=== PATIENT | female | born 1955 | race African-American/Black ===

== ENCOUNTER 2019-12-16 14:30 | Emergency (ER) | payer MEDICARE | END 2019-12-16 16:11 | disposition home or self-care (01) | LOC: EDH 14:30 | DX: S92.415A Nondisplaced fracture of proximal phalanx of left great toe, initial encounter for closed fracture (principal); E11.9 Type 2 diabetes mellitus without complications; I10 Essential (primary) hypertension; E78.00 Pure hypercholesterolemia, unspecified; W18.49XA Other slipping, tripping and stumbling without falling, initial encounter; Y93.89 Activity, other specified; Y92.098 Other place in other non-institutional residence as the place of occurrence of the external cause; Y99.8 Other external cause status | CPT/HCPCS: 73630 ==

== ENCOUNTER → 2024-05-23 | Outpatient (CLI) | payer OTHER, MEDICARE ==
[2024-05-23 08:37] LABS: CREATININE 0.8 mg/dL (0.5-1.0)
== END | disposition home or self-care (01) ==
LOC: LAB 07:33
PROVIDERS: ATTEND Surgery
DX: C41.9 Malignant neoplasm of bone and articular cartilage, unspecified (principal)
CPT/HCPCS: 36415; 82565; 84520

== ENCOUNTER → 2024-05-29 | Outpatient (CLI) | payer OTHER, MEDICARE ==
[~2024-05-29] MED LIST: GADOTERATE MEGLUMINE 10 MMOL/20 ML VIAL IV ONE
== END | disposition home or self-care (01) ==
LOC: RAH 13:48
PROVIDERS: ATTEND Surgery
DX: C41.9 Malignant neoplasm of bone and articular cartilage, unspecified (principal); M19.011 Primary osteoarthritis, right shoulder; M25.711 Osteophyte, right shoulder; M25.811 Other specified joint disorders, right shoulder
CPT/HCPCS: 73223; A9575

== ENCOUNTER 2024-07-03 18:39 | Emergency (ER) | payer OTHER, MEDICARE ==
[~2024-07-03] VITALS: Ht 162.6 cm; Wt 68.9 kg
[2024-07-03 18:41] VITALS: TEMP 98.4
--- NOTE | 2024-07-03 19:05 | ERN ---
ED Note History of Present Illness Stated Complaint: FALL Chief Complaint: Mechanical Fall Time Seen by MD: 18:42 Time Seen by Midlevel: 18:42 Dictation: The patient is a 69-year-old female with a history of a neck cancer, diabetes who presents to the emergency department with complaints of bilateral ankle pain after a trip and fall on her porch onset 6:00 p.m.. Patient reports she landed on her buttocks. Denies any head trauma, LOC, use of blood thinners. Patient denies any other injuries. Denies any neck pain, shoulder pain, extremity pain, hip pain, chest pain, abdominal pain. Allergies: Coded Allergies: No Known Drug Allergies (Unverified Allergy, Unknown, 08/09/17) Past Medical History Past Medical History: Cancer, Diabetes-Type II, Hypertension Surgical History: Unknown RN Note Reviewed/Agreed w/PFSH: Yes Review of System Dictation Constitutional: Negative for fever,chills, and weight loss Eyes: Negative for injury, pain,redness, and discharge ENT: Negative for injury,pain or swelling Cardiovascular: Negative for chest pain, palpitations, and edema Respiratory: Negative for shortness of breath, cough, and wheezing, Abdomen/GI: Negative for abdominal pain, nausea, vomiting, diarrhea, and constipation Back: Negative for injury and pain : Negative for injury, bleeding and discharge MS/Extremity: Negative for injury and deformity positive for bilateral ankle pa in Skin: Negative for rash, and discoloration Neuro: Negative for headache, weakness, numbness, tingling, and seizure Psych: Negative for suicide ideation, homicidal ideation, and hallucinations Initial Vital Sign VS Vital Signs Date Time Temp Pulse Resp B/P (MAP) Pulse Ox O2 Delivery O2 Flow Rate FiO2 07/03/24 18:41 98.4 74 16 118/76 95 Room Air 0 07/03/24 19:47 21 Physical Exam Dictation Vital Signs reviewed General Appearance: Alert, oriented x 3, no acute distress, well developed, nourished. Head and Face: non-traumatic. Eyes: PERRL, pink conjunctivas, eyelid no trauma, anterior chamber with arcus senilis. Ears: Pinnas intact and no signs of trauma or erythema ear canals clear and no discharge TM no erythema Nose: No discharge, no bleeding. Oropharynx: Mouth normal, tongue pink. pharynx clear,no erythema, tonsils no exudates, no abscesses noted, mucous membrane moist Neck: Supple, non-tender, no thyromegaly, no masses, no JVD, no bruits Breast:Deferred Chest:No tenderness, no crepitus, no paradoxical movement, no retractions Lungs:Clear, well-ventilated, symmetric, no rales, no wheezing, no rhonchi, no stridor, good breath sounds bilaterally Heart: Regular rate, regular rhythm, no murmur, no gallops Vascular: no peripheral edema, dorsalis pedis pulses 3+ Abdomen: Soft, positive bowel sounds, nondistended, no guarding, nontender, no rebound, no masses no hepatomegaly, no splenomegaly, no Hough's sign, no hernias. Rectal: Deferred Genital: Deferred Neurological: Normal speech, motor function intact, sensory function intact Musculoskeletal: Neck nontender, full range of motion, back nontender, full range of motion, Extremities: nontender, full range of motion , bilateral ankle tenderness, no swelling, no deformities, cap refill less than 2 seconds, no open wounds Skin: Color pink, dry, no turgor, no rash, no lacerations, no abrasions, no contusions. Lymphatic: Deferred Results (Laboratory/Radiology) Laboratory/Radiology PATIENT: BRENDA VILLALTA MR#: [id number] : 1955 SEX: F AGE: 69 LOCATION: [facility] ORDER 190 STATUS: [facility] REPORT#: [id number] SERVICE [id number] REASON: fall pain ORDERING PHYSICIAN: JACQUELINE BULLOCK MANAGER COMPLETIONS PROCEDURE: [id number] - ANKLE COMP 3VWS RT LEFT ANKLE RADIOGRAPHS - 3 VIEWS INDICATION: Pain COMPARISON: None FINDINGS: AP, lateral, and oblique views. [No acute fracture or subluxation identified]. The talar dome is intact. Ankle mortise and tibial plafond are well maintained. No significant joint effusion is present. Surgical clips along the lateral distal left leg. Partial left fibular resection changes near the image edge. Subcentimeter plantar calcaneal spur. Subcentimeter traction enthesophyte arises off the posterior calcaneus at the Achilles tendon attachment. Mild calcific plaque along the runoff arterial ma. IMPRESSION: No evidence for fracture or dislocation. RIGHT ANKLE RADIOGRAPHS - 3 VIEWS INDICATION: Pain COMPARISON: None FINDINGS: AP, lateral, and oblique views. Nondisplaced fracture through the tip of the lateral malleolus. Indeterminate age fifth metatarsal midshaft fracture. The talar dome is intact. Ankle mortise and tibial plafond are well maintained. No significant joint effusion is present. Subcentimeter plantar calcaneal spur. Subcentimeter traction enthesophyte arises off the posterior calcaneus at the Achilles tendon attachment. Mild calcific plaque along the runoff arterial ma. IMPRESSION: Nondisplaced fracture through the tip of the lateral malleolus, and indeterminate-age fifth metatarsal midshaft fracture for which correlation for point tenderness is recommended left. Right foot radiographs may be necessary. REASON: pain ORDERING PHYSICIAN: JACQUELINE BULLOCK PROCEDURE: FT 3VW RT - FOOT COMP 3+VWS RT FOOT COMP 3+VWS RT HISTORY: Pain COMPARISON: None TECHNIQUE: 3 images of right foot were obtained. FINDINGS: Healing fracture is seen involving the midportion of the fifth metatarsal bone with periosteal reaction. Bony osteopenia is seen. There is calcaneal spur. There is no acute displaced fracture or dislocation. Degenerative changes are seen. IMPRESSION: 1. Findings as described above. Labs Reviewed?: Yes ED Course ED Course Orders Procedure Category Date Status Time Ankle Comp 3vws Lt RAD 07/03/24 Resulted 18:59 Ankle Comp 3vws Rt RAD 07/03/24 Resulted 18:59 Acetaminophen 325 Tab PHA 07/03/24 Complete (Tylenol 325mg Tab 19:00 Foot Comp 3+Vws Rt RAD 07/03/24 Resulted 19:58 *Nursing CPOE 07/03/24 Transmitted Communication: 22:00 Ortho Shoe ALBERTO 07/03/24 In Process 22:30 Current Medications Medications (Trade) Dose Ordered Sig/Dru Route PRN Reason Start Time Stop Time Status Last Admin Dose Admin Acetaminophen (TYLenol 325MG TAB) 650 mg ONCE ONCE PO 07/03/24 19:00 07/03/24 19:01 DC 07/03/24 21:19 Vital Signs Date Time Temp Pulse Resp B/P (MAP) Pulse Ox O2 Delivery O2 Flow Rate FiO2 07/03/24 22:24 81 16 130/82 97 Room Air* 0 21 07/03/24 19:47 85 16 181/92 96 Room Air* 0 21 07/03/24 18:41 98.4 74 16 118/76 95 Room Air 0 Medical Decision Making MDM The patient is a 69-year-old female with a history of a neck cancer, diabetes who presents to the emergency department with complaints of bilateral ankle pain after a trip and fall on her porch onset 6:00 p.m.. Patient reports she landed on her buttocks. Denies any head trauma, LOC, use of blood thinners. Patient denies any other injuries. Denies any neck pain, shoulder pain, extremity pain, hip pain, chest pain, abdominal pain. Foot x-rays revealed a nondisplaced fracture of the tip of the lateral malleolus in 5th metatarsal fracture patient will be splinted and instructed to follow up with orthopedic. Patient continues in no distress. Neurovascular intact. Differential diagnosis: Ankle sprain bilaterally, tib-fib fracture, ankle contusion Need for hospitalization: Patient does not meet criteria for hospitalization. There are no social concerns with this patient. DX & DISP Disposition: Discharge Departure Impression: Primary Impression: Fracture of lateral malleolus of right ankle Additional Impressions: Fracture of fifth metatarsal bone of right foot, Fall Condition: Stable Additional Instructions: Please follow up with Orthopedic in 1-2 days. And your primary doctor. If symptoms worsen please return to ER. FOLLOW-UP WITH PRIMARY CARE PROVIDER IN 1 TO 2 DAYS. TAKE MEDICATIONS DIRECTED HERE IN THE EMERGENCY ROOM. OKAY TO CONTINUE HOME MEDICATIONS UNLESS OTHERWISE DISCUSSED DURING YOUR VISIT IN THE EMERGENCY ROOM TODAY. RETURN TO YOUR NEAREST EMERGENCY ROOM IF SYMPTOMS WORSEN OR IF THERE IS NO IMPROVEMENT. CALL 911 IF YOU NEED IMMEDIATE ASSISTANCE. TAKE TYLENOL OR MOTRIN [id number] NEEDED AND IF NO CONTRAINDICATIONS ARE PRESENT. INCREASE ORAL HYDRATION. A WOUND CULTURE OR URINE CULTURE WAS ORDERED HERE IN THE EMERGENCY ROOM DEPARTMENT PLEASE FOLLOW-UP WITH PRIMARY CARE PROVIDER AND ADVISE THEM TO GET REPEAT PORTS FROM OUR FACILITY. IF YOU HAD ANY DARLEEN WRAP/SPLINTS THAT WERE APPLIED HERE, PLEASE DO NOT REMOVE THEM UNTIL YOU SEE YOUR PRIMARY CARE OR SPECIALTY. Referrals: MARY RUIZ DO (PCP) JOHN ALCANTARA MD Time of Disposition: 22:12 I have reviewed the case, and I agree with, Diagnosis and Plan JACQUELINE BULLOCK [facility] Jul 03, 2024 19:05
--- NOTE | 2024-07-03 19:52 | HMCIMG ---
LEFT ANKLE RADIOGRAPHS - 3 VIEWS INDICATION: Pain COMPARISON: None FINDINGS: AP, lateral, and oblique views. [No acute fracture or subluxation identified]. The talar dome is intact. Ankle mortise and tibial plafond are well maintained. No significant joint effusion is present. Surgical clips along the lateral distal left leg. Partial left fibular resection changes near the image edge. Subcentimeter plantar calcaneal spur. Subcentimeter traction enthesophyte arises off the posterior calcaneus at the Achilles tendon attachment. Mild calcific plaque along the runoff arterial ma. IMPRESSION: No evidence for fracture or dislocation. RIGHT ANKLE RADIOGRAPHS - 3 VIEWS INDICATION: Pain COMPARISON: None FINDINGS: AP, lateral, and oblique views. Nondisplaced fracture through the tip of the lateral malleolus. Indeterminate age fifth metatarsal midshaft fracture. The talar dome is intact. Ankle mortise and tibial plafond are well maintained. No significant joint effusion is present. Subcentimeter plantar calcaneal spur. Subcentimeter traction enthesophyte arises off the posterior calcaneus at the Achilles tendon attachment. Mild calcific plaque along the runoff arterial ma. IMPRESSION: Nondisplaced fracture through the tip of the lateral malleolus, and indeterminate-age fifth metatarsal midshaft fracture for which correlation for point tenderness is recommended left. Right foot radiographs may be necessary.
[2024-07-03] MEDS: acetaMINOPHEN 325 MG TAB PO ONE (21:19)
--- NOTE | 2024-07-03 22:15 | HMCIMG ---
FOOT COMP 3+VWS RT HISTORY: Pain COMPARISON: None TECHNIQUE: 3 images of right foot were obtained. FINDINGS: Healing fracture is seen involving the midportion of the fifth metatarsal bone with periosteal reaction. Bony osteopenia is seen. There is calcaneal spur. There is no acute displaced fracture or dislocation. Degenerative changes are seen. IMPRESSION: 1. Findings as described above.
[2024-07-03 22:24] VITALS: BP 130/82; PULSE 81; RESP 16; O2SAT 97
--- NOTE | 2024-07-03 22:31 | NUR ---
PT PLACED IN ORTHO BOOT AT THIS TIME PRIOR TO DISCHARGE ORDERED
== END 2024-07-03 22:52 | disposition home or self-care (01) ==
LOC: EDH 18:39
DX: S82.61XA Displaced fracture of lateral malleolus of right fibula, initial encounter for closed fracture (principal); S92.351A Displaced fracture of fifth metatarsal bone, right foot, initial encounter for closed fracture; E11.9 Type 2 diabetes mellitus without complications; I10 Essential (primary) hypertension; W01.0XXA Fall on same level from slipping, tripping and stumbling without subsequent striking against object, initial encounter; Y93.89 Activity, other specified; Y92.89 Other specified places as the place of occurrence of the external cause; Y99.8 Other external cause status
CPT/HCPCS: 29515; 73610; 73630; 99284